=== PATIENT | female | born 1995 | race Caucasian/White ===

== ENCOUNTER 2019-04-26 20:06 | Emergency (ER) | payer BC ==
[~2019-04-26] VITALS: Ht 160 cm; Wt 67.3 kg
[~2019-04-26 20:06] MED LIST: NO HOME MEDICATIONS; PRILOSEC 20MG20 MG PO
[2019-04-26 20:10] VITALS: BP 143/83; TEMP 98.6
[2019-04-26 20:52] LABS: BASO % 0.2 % (0.0-2.0); EOS % 0.3 % (0-4.0); GRAN # 9.8 (1.4-6.5); GRAN % 77.5 % (42.2-75.2); HEMATOCRIT 43.5 % (37.0-47.0); HEMOGLOBIN 14.6 g/dl (12.5-16.0); LYMPH # 2.1 (1.2-3.4); LYMPH % 16.5 % (20.0-51.0); MEAN CELL VOLUME 91 fl (80.0-100.0); MEAN CORPUSCULAR HEMOGLOBIN 30 pg (27.0-31.0); MEAN CORPUSCULAR HGB CONC 34 g/dl (33.0-37.0); MEAN PLATELET VOLUME 10.4 fl (7.4-10.4); MONO # 0.6 (0.1-0.6); PLATELET COUNT 287 K/mm3 (130-400); REDCELL DISTRIBUTION WIDTH-CV 12.1 % (11.5-14.5)
[2019-04-26 21:07] LABS: ALANINE AMINOTRANSFERASE 21 U/L (9-52); ALBUMIN 4.9 gm/dL (3.5-5.0); ALKALINE PHOSPHATASE 130 U/L (50-136); ANION GAP 12 mmol/L (7-16); AST,SGOT 29 U/L (15-37); BILIRUBIN,TOTAL 0.6 mg/dL (0.0-1.0); BLOOD UREA NITROGEN 14 mg/dL (7-17); CALCIUM 9.9 mg/dL (8.4-10.2); CARBON DIOXIDE 26 mmol/L (22-30); CHLORIDE 103 mmol/L (98-107); GLUCOSE 106 mg/dL (74-106); POTASSIUM 3.7 mmol/L (3.4-5.0); SODIUM 141 mmol/L (137-145); TOTAL PROTEIN 8.7 gm/dL (6.4-8.2)
[2019-04-26 21:18] LABS: TROPONIN-I < 0.012 ng/mL (0.000-0.035)
[2019-04-26 22:05] VITALS: PULSE 86
[2019-04-26] MEDS ORDERED: PROZAC 20MG20 MG PO (22:56)
== END 2019-04-26 22:05 | disposition home or self-care (01) ==
LOC: COL.ER 20:06
PROVIDERS: Emergency Medicine
DX: R11.2 Nausea with vomiting, unspecified (principal); R06.02 Shortness of breath; R07.89 Other chest pain; Z90.89 Acquired absence of other organs
CPT/HCPCS: J2060; J2405; J7030

== ENCOUNTER 2019-05-14 03:27 | Emergency (ER) | payer BC ==
[~2019-05-14] VITALS: Ht 160 cm; Wt 66.8 kg
[~2019-05-14 03:27] MED LIST changes: +PROZAC 20MG20 MG PO
[2019-05-14 03:33] VITALS: BP 116/82; TEMP 97.7
[2019-05-14 04:14] LABS: BASO % 0.3 % (0.0-2.0); EOS # 0.3 (0.0-0.7); EOS % 2.8 % (0-4.0); GRAN # 5.4 (1.4-6.5); GRAN % 56.8 % (42.2-75.2); HEMATOCRIT 45.2 % (37.0-47.0); HEMOGLOBIN 15.2 g/dl (12.5-16.0); LYMPH # 3.3 (1.2-3.4); LYMPH % 34.1 % (20.0-51.0); MEAN CELL VOLUME 89 fl (80.0-100.0); MEAN CORPUSCULAR HEMOGLOBIN 30 pg (27.0-31.0); MEAN CORPUSCULAR HGB CONC 34 g/dl (33.0-37.0); MEAN PLATELET VOLUME 10.5 fl (7.4-10.4); MONO # 0.6 (0.1-0.6); MONO % 5.8 % (1.7-9.3); PLATELET COUNT 237 K/mm3 (130-400); RED BLOOD COUNT 5.06 M/mm3 (4.10-5.30); REDCELL DISTRIBUTION WIDTH-CV 11.9 % (11.5-14.5)
[2019-05-14 04:22] LABS: ALANINE AMINOTRANSFERASE 8 U/L (9-52); ALKALINE PHOSPHATASE 123 U/L (50-136); ANION GAP 12 mmol/L (7-16); AST,SGOT 27 U/L (15-37); BILIRUBIN,TOTAL 0.6 mg/dL (0.0-1.0); BLOOD UREA NITROGEN 16 mg/dL (7-17); CARBON DIOXIDE 21 mmol/L (22-30); CHLORIDE 106 mmol/L (98-107); CREATININE, serum 0.83 (0.52-1.25); GLUCOSE 91 mg/dL (74-106); POTASSIUM 4.2 mmol/L (3.4-5.0); SODIUM 139 mmol/L (137-145); TOTAL PROTEIN 8.9 gm/dL (6.4-8.2)
[2019-05-14 04:40] LABS: TROPONIN-I < 0.012 ng/mL (0.000-0.035)
[2019-05-14 06:12] VITALS: PULSE 88
== END 2019-05-14 06:12 | disposition home or self-care (01) ==
LOC: COL.ER 03:27
PROVIDERS: Emergency Medicine
DX: R09.1 Pleurisy (principal); F41.9 Anxiety disorder, unspecified
CPT/HCPCS: J7030

== ENCOUNTER → 2020-10-26 | Outpatient (CLI) | payer BC | LOC: COL.RAD 10-14 14:45 | DX: E04.2 Nontoxic multinodular goiter (principal) ==

== ENCOUNTER 2020-12-09 14:47 | Emergency (ER) | payer BC ==
[~2020-12-09] VITALS: Ht 160 cm; Wt 90.9 kg
[2020-12-09 14:57] VITALS: TEMP 98.9
[2020-12-09 18:16] LABS: COLLECTION METHOD CLEAN CATCH
[2020-12-09 18:25] LABS: PH 6 (5-8); SQUAMOUS EPITHELIAL 0-2 /hpf; URINE APPEARANCE Clear; URINE BACTERIA Rare /hpf; URINE BILIRUBIN Negative (NEGATIVE); URINE BLOOD Negative (NEGATIVE); URINE COLOR Straw; URINE GLUCOSE Negative (NEGATIVE); URINE KETONE Negative (NEGATIVE); URINE LEUKOCYTE ESTERASE Trace (NEGATIVE); URINE NITRATE Negative (NEGATIVE); URINE PROTEIN(semi-quant) Negative (NEGATIVE); URINE RBC 0-2 /hpf; URINE UROBILINOGEN Negative (NEGATIVE); URINE WBC 0-2 /hpf
[2020-12-09 18:28] LABS: BASO % 0.3 % (0.0-2.0); EOS # 0.1 (0.0-0.7); EOS % 1.2 % (0-4.0); GRAN # 7.5 (1.4-6.5); GRAN % 68.8 % (42.2-75.2); HEMATOCRIT 42.8 % (37.0-47.0); LYMPH # 2.7 (1.2-3.4); LYMPH % 24.9 % (20.0-51.0); MEAN CELL VOLUME 87 fl (80.0-100.0); MEAN CORPUSCULAR HEMOGLOBIN 28 pg (27.0-31.0); MEAN CORPUSCULAR HGB CONC 33 g/dl (33.0-37.0); MEAN PLATELET VOLUME 10.3 fl (7.4-10.4); MONO # 0.5 (0.1-0.6); MONO % 4.5 % (1.7-9.3); PLATELET COUNT 333 K/mm3 (130-400); RED BLOOD COUNT 4.94 M/mm3 (4.10-5.30); REDCELL DISTRIBUTION WIDTH-CV 13.1 % (11.5-14.5)
[2020-12-09 18:34] LABS: ALBUMIN 4.4 gm/dL (3.5-5.0); BILIRUBIN,TOTAL 0.3 mg/dL (0.0-1.0); CALCIUM 9.5 mg/dL (8.4-10.2); CREATININE, serum 0.82 (0.52-1.25); POTASSIUM 3.8 mmol/L (3.4-5.0); TOTAL PROTEIN 8.7 gm/dL (6.4-8.2)
[2020-12-09 21:19] VITALS: BP 118/69; PULSE 89
== END 2020-12-09 21:19 | disposition home or self-care (01) ==
LOC: COL.ER 14:47
PROVIDERS: Nurse Practitioner Primary Care
DX: M54.5 Low back pain (principal); Z87.442 Personal history of urinary calculi; Z32.02 Encounter for pregnancy test, result negative
CPT/HCPCS: J1885; Q9967

== ENCOUNTER 2021-07-06 20:01 | Emergency (ER) | payer BC ==
[~2021-07-06] VITALS: Ht 160 cm; Wt 86.4 kg
[2021-07-06 22:22] VITALS: BP 113/81; PULSE 74; TEMP 98.4
== END 2021-07-06 22:22 | disposition home or self-care (01) ==
LOC: COL.ER 20:01
DX: R07.9 Chest pain, unspecified (principal); F17.290 Nicotine dependence, other tobacco product, uncomplicated; Z20.822 Contact with and (suspected) exposure to COVID-19
CPT/HCPCS: J1885

== ENCOUNTER 2021-09-28 09:09 | Outpatient (CLI) | payer BC ==
[~2021-09-28] VITALS: Ht 160 cm; Wt 87.8 kg
[~2021-09-28 09:09] MED LIST changes: +LEXAPRO 10MG10 MG PO
[2021-09-28 09:12] VITALS: BP 119/74; PULSE 69; TEMP 98.2
[2021-09-28 10:25] VITALS: BP 122/63; PULSE 57
[2021-09-28 10:27] VITALS: BP 122/63; PULSE 56
[2021-09-28 11:00] VITALS: BP 125/96; PULSE 57
[2021-09-28 11:05] LABS: GLUCOSE,CSF 51 mg/dL (40-70); TOTAL PROTEIN,CSF 20 mg/dL (15-45)
[2021-09-28 11:06] LABS: CSF APPEARANCE CLEAR; CSF COLOR COLORLESS; CSF RBC 0 /mm3 (0-0)
[2021-09-28 11:30] VITALS: BP 123/71; PULSE 62
--- NOTE | 2021-09-28 11:40 | NUR ---
Pt and significant other at bedside, both verbalized understanding of discharge instructions and comfort in going home; LP site remains covered with bandaid, CDI, and without s/s of infection; with ambulation to wheelchair and restroom, pt has steady gait and balance and denies STEELE or dizziness; escorted to private vehicle for discharge.
[2021-09-28 12:06] LABS: CSF POLYMORPHONUCLEAR 0 % (0-6)
[2021-09-28 12:07] LABS: CSF MONONUCLEAR 100 % (70-100)
== END 2021-09-28 11:40 | disposition home or self-care (01) ==
LOC: COL.RAD 09:09
PROVIDERS: Nurse Practitioner
DX: H47.10 Unspecified papilledema (principal); H53.9 Unspecified visual disturbance; G43.709 Chronic migraine without aura, not intractable, without status migrainosus

== ENCOUNTER 2021-09-30 08:35 | Emergency (ER) | payer BC ==
[~2021-09-30] VITALS: Ht 160 cm; Wt 86.4 kg
[2021-09-30 08:45] VITALS: TEMP 98.8
[2021-09-30] MEDS ORDERED: DIAMOX 250MG250 MG PO (08:50)
[2021-09-30 10:13] VITALS: BP 116/78; PULSE 66
== END 2021-09-30 10:13 | disposition home or self-care (01) ==
LOC: COL.ER 08:35
DX: G97.1 Other reaction to spinal and lumbar puncture (principal); Z32.02 Encounter for pregnancy test, result negative
CPT/HCPCS: J0780; J1200; J7120

== ENCOUNTER → 2021-10-13 | Outpatient (CLI) | payer BC ==
[~2021-10-13] MED LIST changes: +DIAMOX 250MG250 MG PO
== END ==
LOC: COL.RAD 13:45
DX: H47.10 Unspecified papilledema (principal); H53.9 Unspecified visual disturbance; G43.709 Chronic migraine without aura, not intractable, without status migrainosus